=== PATIENT | female | born 1980 | race Caucasian/White ===

== ENCOUNTER 2020-01-31 15:31 | Emergency (ER) | payer MEDICAID ==
[2020-01-31 15:38] VITALS: BP 104/64
== END 2020-01-31 17:34 | disposition home or self-care (01) ==
LOC: ER 15:32
DX: R22.31 Localized swelling, mass and lump, right upper limb (principal); M25.531 Pain in right wrist; J45.909 Unspecified asthma, uncomplicated
CPT/HCPCS: 73090; 99283

== ENCOUNTER 2021-09-22 14:35 | Emergency (ER) | payer MEDICAID | END 2021-09-22 18:06 | disposition left against medical advice (07) | LOC: ER 14:36 | DX: M54.9 Dorsalgia, unspecified (principal); Z53.21 Procedure and treatment not carried out due to patient leaving prior to being seen by health care provider ==

== ENCOUNTER 2021-09-26 10:44 | Emergency (ER) | payer MEDICAID ==
[~2021-09-26] VITALS: Ht 170.2 cm; Wt 139.1 kg
[2021-09-26] MEDS ORDERED: acetaminophen 325mg tablet PO ONE (12:30)
[2021-09-26] MEDS ORDERED: LIDOcaine 5% patch TP ONE (12:30)
[2021-09-26] MEDS ORDERED: ketorolac trometh inj. 60 MG/2 ML VIAL IM ONE (12:30)
[2021-09-26] MEDS ORDERED: HYDROcodone/acetaminophen 5mg/325mg tablet PO ONE (12:30)
[2021-09-26] MEDS ORDERED: ondansetron 4mg rapidly disintigrating tab PO ONE (12:30)
[2021-09-26] MEDS ORDERED: HYDR-3965 PO (13:02)
[2021-09-26] MEDS ORDERED: LIDO700A32 TOP (13:02)
[2021-09-26] MEDS ORDERED: CYCL-1 PO (13:02)
[2021-09-26 13:18] VITALS: BP 137/84
== END 2021-09-26 13:20 | disposition home or self-care (01) ==
LOC: ER 10:44
DX: M54.50 Low back pain, unspecified (principal); J45.909 Unspecified asthma, uncomplicated; Z87.442 Personal history of urinary calculi; Z72.89 Other problems related to lifestyle; Z91.018 Allergy to other foods; Z79.899 Other long term (current) drug therapy
CPT/HCPCS: 71045; 96372; 99284; J1885